=== PATIENT | male | born 1995 | race Hispanic/Latino ===

== ENCOUNTER 2023-01-25 16:33 | Emergency (ER) | payer SELFPAY ==
[2023-01-25 16:41] VITALS: BP 141/86; PULSE 76; RESP 18; TEMP 36.6; O2SAT 99
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
[2023-01-25] MEDS: cycloBENZAPRine HCl 10 MG Tablet PO (20:47)
[2023-01-25] MEDS: Ibuprofen 600 MG Tablet PO (20:47)
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
== END 2023-01-25 20:48 | disposition home or self-care (01) ==
PROVIDERS: Emergency Provider Student in an Organized Health Care Education/Training Program; Visit Provider Student in an Organized Health Care Education/Training Program
DX: S70.02XA Contusion of left hip, initial encounter (principal); V49.50XA Passenger injured in collision with unspecified motor vehicles in traffic accident, initial encounter; Y92.410 Unspecified street and highway as the place of occurrence of the external cause
CPT/HCPCS: 73502; 99285